=== PATIENT | female | born 1950 | race Caucasian/White ===

== ENCOUNTER 2023-05-06 15:52 | Emergency (ER) | payer BC, SELFPAY ==
--- NOTE | ~2023-05-06 | CT_ITS ---
EXAMINATION: CT brain wo con DATE: 05/06/2023 16:12 INDICATION: Fall. TECHNIQUE: Computed tomography (CT) of the head was performed without intravenous contrast. The mA wa s adjusted according to patient size. Iterative reconstruction technique was employed. The dose-lengt h product was 1210.67 mGy-cm. COMPARISON: None FINDINGS: There is no intracranial hemorrhage, acute infarction, or abnormal intracranial mass lesion . The ventricles are normal in size. There is mucosal thickening in the paranasal sinuses. The orbits are normal. The mastoid air cells are normal. There is cerumen in the external auditory canals. IMPRESSION: 1. Normal brain. Reviewed, dictated and finalized at location A. [facility] IMPRESSION: 1. Normal brain.
--- NOTE | ~2023-05-06 | XR_ITS ---
EXAMINATION: XR shoulder RT min 2V DATE: 05/06/2023 16:23 INDICATION: Fall. TECHNIQUE: 4 views of right shoulder were obtained. COMPARISON: None. FINDINGS: Bone alignment is normal. No fracture. There is severe osteoarthritis of glenohumeral joint and acromioclavicular joint. IMPRESSION: 1. Polyarticular osteoarthritis. Reviewed, dictated and finalized at location A. HOST
--- NOTE | ~2023-05-06 | CT_ITS ---
EXAMINATION: CT cervical spine wo con DATE: 05/06/2023 16:13 INDICATION: Fall. TECHNIQUE: Computed tomography (CT) of the cervical spine was performed without intravenous contrast. Automated exposure control and iterative reconstruction technique were employed. The dose-length pro duct was 678.72 mGy-cm. COMPARISON: None FINDINGS: There is 10 degrees levoscoliosis of cervicothoracic spine. Bone alignment is normal. There is severely decreased disc height from C3-C4 through C6-C7. The following disc levels are specifical ly discussed: C2-C3: There is no uncovertebral joint osteoarthritis. There is no facet joint osteoarthritis. There is no neural foraminal stenosis. There is no central canal stenosis. C3-C4: There is severe bilateral uncovertebral joint osteoarthritis. There is mild left facet joint o steoarthritis. There is mild bilateral neural foraminal stenosis. There is mild central canal stenosi s. C4-C5: There is severe bilateral uncovertebral joint osteoarthritis. There is no facet joint osteoart hritis. There is mild bilateral neural foraminal stenosis. There is mild central canal stenosis. C5-C6: There is severe bilateral uncovertebral joint osteoarthritis. There is mild bilateral facet adeola int osteoarthritis. There is mild right and moderate left neural foraminal stenosis. There is mild ce ntral canal stenosis. C6-C7: There is mild right and severe left uncovertebral joint osteoarthritis. There is severe bilate ral facet joint osteoarthritis. There is mild left neural foraminal stenosis. There is mild central c anal stenosis. C7-T1: There is no uncovertebral joint osteoarthritis. There is severe bilateral facet joint osteoart hritis. There is mild left neural foraminal stenosis. There is no central canal stenosis. IMPRESSION: 1. No fracture. 2. Severe cervical spondylosis. 3. Cervicothoracic levoscoliosis. Reviewed, dictated and finalized at location A. MANAGER
[2023-05-06 15:53] VITALS: BP 141/86; PULSE 96; RESP 18; TEMP 36.7; O2SAT 100
[2023-05-06 16:24] VITALS: O2SAT 99
[2023-05-06 16:30] VITALS: O2SAT 100
--- NOTE | 2023-05-06 17:32 | ED.FALL ---
HPI - Fall General Chief Complaint: Fall Stated Complaint: fall Time Seen by Provider: 05/06/23 16:50 History of Present Illness HPI Narrative: 72-year-old female history of Alzheimer's disease presented to the ED for evaluation after having a fall from bed patient denies any pain or complaint at this time. Patient had been complaining of shoulder pain earlier. Related Data Allergies Allergy/AdvReac Type Severity Reaction Status Date / Time latex Allergy Unknown Verified 05/06/23 18:00 Tetanus Vaccines and Toxoid Allergy Unknown Verified 05/06/23 18:00 HYDROXYZINE HCL Allergy Unknown Uncoded 05/06/23 18:00 HYDROXYZINE PAMOATE Allergy Unknown Uncoded 05/06/23 18:00 Review of Systems Review of Systems: All systems reviewed & are unremarkable except as noted in HPI and below Exam Narrative: APPEARANCE: Well appearing, no pain, no distress, well-nourished. HEAD: normocephalic, atraumatic. EYES: PERRLA/EOMI, conjunctivae clear. NOSE: Normal no drainage EARS:TMS clear with good light reflex. THROAT: Pharynx clear, no exudate. NECK: Supple. No adenopathy, no masses. RESPIRATORY: Airway patent, respirations nonlabored. Clear to auscultation bilaterally, no rales, rhonchi, wheezing. CARDIOVASCULAR: Regular rate and rhythm without murmurs rubs or gallops. ABDOMINAL: Soft, nontender, nondistended, normal bowel sounds MUSCULOSKELETAL: Moves all extremities. Strength/ROM intact, No edema, No calf tenderness. NEURO: Alert. Cranial nerves II through XII intact. Good gait. Good coordination SKIN: Warm, dry. Normal Color PSYCHIATRIC: Normal affect/mood. Course Course Emergency Course: 72-year-old female present in the emergency department for evaluation for injuries sustained from falling from bed patient had negative cervical CT brain CT and negative right shoulder films. Patient and family were updated on the results of the workup and they are comfortable with plan for discharge and close follow-up. Vital Signs Vital signs: Vital Signs Temperature 98.1 F 05/06/23 15:53 Pulse Rate 96 05/06/23 15:53 Respiratory Rate 18 05/06/23 15:53 Blood Pressure 141/86 H 05/06/23 15:53 Pulse Oximetry 100 05/06/23 15:53 Oxygen Delivery Room Air 05/06/23 15:53 Temperature 98.1 F 05/06/23 15:53 Pulse Rate 96 05/06/23 15:53 Respiratory Rate 18 05/06/23 15:53 Blood Pressure 141/86 H 05/06/23 15:53 Pulse Oximetry 100 05/06/23 16:30 Oxygen Delivery Room Air 05/06/23 15:53 MDM - Fall Imaging Data Radiologist's impression: Impressions Head CT 05/06/23 16:14 IMPRESSION: 1. Normal brain. Cervical Spine CT 05/06/23 16:16 IMPRESSION: 1. No fracture. 2. Severe cervical spondylosis. 3. Cervicothoracic levoscoliosis. Shoulder X-Ray 05/06/23 16:27 IMPRESSION: 1. Polyarticular osteoarthritis. Discharge Plan Discharge Clinical Impression: Acute shoulder pain Patient Disposition: Home, Self-Care Condition: Stable Instructions: Antibiotic Form, Contusion in Adults (ED) Additional Instructions: Have close follow-up with your primary care physician. If you have any worsening symptoms and please call or return to the emergency department. Follow-up/Referrals: Stan,Johnny Flores MD [Primary Care Provider] -
== END 2023-05-06 18:32 | disposition home or self-care (01) ==
LOC: ANHED 18:02
PROVIDERS: Emergency Provider Emergency Medicine; PCP Internal Medicine Endocrinology, Diabetes & Metabolism
DX: M25.511 Pain in right shoulder (principal); G30.9 Alzheimer's disease, unspecified; F02.80 Dementia in other diseases classified elsewhere, unspecified severity, without behavioral disturbance, psychotic disturbance, mood disturbance, and anxiety; W06.XXXA Fall from bed, initial encounter
CPT/HCPCS: 70450; 72125; 73030; 99284